=== PATIENT | male | born 1970 | race Caucasian/White ===

== ENCOUNTER → 2017-02-16 | Outpatient (CLI) | payer OTHER ==
[~2017-02-16] MED LIST: OMNIPAQUE 350 MG/ML, 75ML BOTTLE ONE
== END | disposition home or self-care (01) ==
LOC: CFH 12:16
PROVIDERS: ATTEND Family Medicine
DX: R07.89 Other chest pain (principal)
CPT/HCPCS: 71260; Q9967

== ENCOUNTER → 2017-02-27 | Outpatient (CLI) | payer OTHER | END | disposition home or self-care (01) | LOC: CFH 13:27 | PROVIDERS: ATTEND Internal Medicine Cardiovascular Disease | DX: Z13.6 Encounter for screening for cardiovascular disorders (principal); R07.89 Other chest pain | CPT/HCPCS: 75571 ==

== ENCOUNTER 2017-03-04 14:18 | Emergency (ER) | payer OTHER ==
[~2017-03-04] VITALS: Ht 182.9 cm; Wt 83.6 kg
[2017-03-04] MEDS ORDERED: LORA-445 PO (15:00)
[2017-03-04] MEDS ORDERED: RANI150T8 PO (15:00)
[2017-03-04] MEDS ORDERED: PANT40TA3 PO (15:00)
[2017-03-04] MEDS ORDERED: OLAN2.5T3 PO (15:00)
[2017-03-04] MEDS ORDERED: SODIUM CHLORIDE FLUSH 10ML SYR IVF ONE (15:30)
[2017-03-04 15:31] LABS: ASPARTATE AMINO TRANSFERASE 26 U/L (15-37); BLOOD UREA NITROGEN 20 mg/dL (7-18)
[2017-03-04 15:38] LABS: IS PT STATUS REG ER OR PRE ER? YES
[2017-03-04 16:15] VITALS: BP 119/71
[2017-03-04 17:37] LABS: IS PT STATUS REG ER OR PRE ER? YES
== END 2017-03-04 18:05 | disposition home or self-care (01) ==
LOC: ED 17:50
DX: R07.2 Precordial pain (principal); K21.9 Gastro-esophageal reflux disease without esophagitis; Z87.891 Personal history of nicotine dependence
CPT/HCPCS: 36415; 71010; 76700; 80053; 83690; 83880; 84484; 85025; 93005; 99285

== ENCOUNTER 2017-03-07 16:51 | Emergency (ER) | payer OTHER ==
[~2017-03-07] VITALS: Ht 182.9 cm; Wt 85.8 kg
[~2017-03-07 16:51] MED LIST changes: +LORA-445 PO; +OLAN2.5T3 PO; -OMNIPAQUE 350 MG/ML, 75ML BOTTLE ONE; +PANT40TA3 PO; +RANI150T8 PO
[2017-03-07 18:53] LABS: BLOOD UREA NITROGEN 12 mg/dL (7-18)
[2017-03-07 18:59] LABS: IS PT STATUS REG ER OR PRE ER? YES
[2017-03-07 19:24] VITALS: BP 144/89
== END 2017-03-07 19:27 | disposition home or self-care (01) ==
LOC: ED 17:41
DX: R07.2 Precordial pain (principal); K21.9 Gastro-esophageal reflux disease without esophagitis; Z87.891 Personal history of nicotine dependence
CPT/HCPCS: 36415; 71010; 80048; 82040; 84484; 85025; 93005; 99285

== ENCOUNTER 2017-03-13 09:34 | Day surgery (SDC) | payer OTHER ==
[2017-03-12 11:55] VITALS: BP 115/68
[2017-03-12 13:00] LABS: BLOOD UREA NITROGEN 12 mg/dL (7-18)
[~2017-03-13] VITALS: Ht 182.9 cm; Wt 84.1 kg
[~2017-03-13 09:34] MED LIST changes: +TEST200V3 IM
[2017-03-13] MEDS ORDERED: SODIUM CHLORIDE 0.9% 1,000 ML IV SCH ×2 (10:27→14:00)
[2017-03-13] MEDS ORDERED: ONDANSETRON 2MG/ML, 2ML IVPush PRN (10:30)
[2017-03-13] MEDS ORDERED: BISACODYL 5 MG EC TABLET PO PRN (10:30)
[2017-03-13] MEDS ORDERED: ACETAMINOPHEN 325 MG TABLET PO PRN (10:30)
[2017-03-13] MEDS ORDERED: ASPIRIN 325 MG TABLET EC PO ONE (10:30)
[2017-03-13] MEDS ORDERED: BISACODYL 10 MG SUPP PR PRN (10:30)
[2017-03-13] MEDS ORDERED: ZOLPIDEM 5MG TABLET PO PRN (10:30)
[2017-03-13] MEDS ORDERED: FENTANYL PF 100 MCG/2ML ONE (12:23)
[2017-03-13] MEDS ORDERED: LIDOCAINE 2%, 20ML ONE (12:24)
[2017-03-13] MEDS ORDERED: MIDAZOLAM 1 MG/ML, 5ML ONE (12:24)
[2017-03-13] MEDS ORDERED: ACETAMINOPHEN 325 MG TABLET ONE (12:26)
== END 2017-03-13 16:30 ==
LOC: CACL 09:34
PROVIDERS: ATTEND Internal Medicine Cardiovascular Disease
DX: R07.9 Chest pain, unspecified (principal); Z88.3 Allergy status to other anti-infective agents; Z88.0 Allergy status to penicillin; Z88.8 Allergy status to other drugs, medicaments and biological substances; Z87.891 Personal history of nicotine dependence
CPT/HCPCS: 36415; 71020; 80048; 85025; 85610; 85730; 93005; 93458; 99156; C1894; J2250; J3010; J3490; J7030; Q9967

== ENCOUNTER 2017-03-14 15:33 | Emergency (ER) | payer OTHER ==
[~2017-03-14] VITALS: Ht 182.9 cm; Wt 84.0 kg
[2017-03-14] MEDS ORDERED: MORPHINE SULFATE 4 MG/ML, 1ML ONE (16:28)
[2017-03-14] MEDS ORDERED: KETOROLAC 30 MG/1 ML ONE (16:29)
[2017-03-14] MEDS ORDERED: MAALOX/HYOSCYAMINE/LIDOCAINE 45 ML BTL ONE (16:29)
[2017-03-14] MEDS ORDERED: SODIUM CHLORIDE 0.9% 1,000ML IVBOLUS ONE (16:30)
[2017-03-14] MEDS ORDERED: SODIUM CHLORIDE FLUSH 10ML SYR IVF ONE (16:30)
[2017-03-14] MEDS ORDERED: MORPHINE SULFATE 4 MG/ML, 1ML IVPush PRN (16:30)
[2017-03-14] MEDS ORDERED: KETOROLAC 30 MG/1 ML IVPush ONE (16:30)
[2017-03-14] MEDS ORDERED: MAALOX/HYOSCYAMINE/LIDOCAINE 45 ML BTL PO ONE (16:30)
[2017-03-14 17:01] LABS: BLOOD UREA NITROGEN 8 mg/dL (7-18)
[2017-03-14 17:29] LABS: IS PT STATUS REG ER OR PRE ER? YES
[2017-03-14 18:17] VITALS: BP 118/63
== END 2017-03-14 18:18 | disposition home or self-care (01) ==
LOC: ED 17:41
DX: R07.9 Chest pain, unspecified (principal); K21.9 Gastro-esophageal reflux disease without esophagitis; Z87.891 Personal history of nicotine dependence
CPT/HCPCS: 36415; 71010; 80048; 82040; 83880; 84484; 93005; 96361; 96374; 96375; 99285; J1885; J7030

== ENCOUNTER 2017-03-25 15:00 | Emergency (ER) | payer OTHER ==
[~2017-03-25] VITALS: Ht 182.9 cm; Wt 86.4 kg
[2017-03-25] MEDS ORDERED: KETOROLAC 30 MG/1 ML IVPush ONE (15:30)
[2017-03-25] MEDS ORDERED: ONDANSETRON 2MG/ML, 2ML IVPush ONE (15:30)
[2017-03-25] MEDS ORDERED: ASPIRIN 81 MG TABLET CHEW PO ONE (15:30)
[2017-03-25] MEDS ORDERED: MORPHINE SULFATE 4 MG/ML, 1ML IVPush PRN (15:30)
[2017-03-25] MEDS ORDERED: SODIUM CHLORIDE 0.9% 1,000ML IVBOLUS ONE (15:30)
[2017-03-25] MEDS ORDERED: SODIUM CHLORIDE FLUSH 10ML SYR IVF ONE (15:30)
[2017-03-25 15:46] LABS: HEMATOCRIT 50.9 % (39.2-51.8); HEMOGLOBIN 17.5 g/dL (13.7-18.0)
[2017-03-25 15:48] LABS: BLOOD UREA NITROGEN 16 mg/dL (7-18)
[2017-03-25 15:53] LABS: IS PT STATUS REG ER OR PRE ER? YES
[2017-03-25] MEDS ORDERED: MORPHINE SULFATE 4 MG/ML, 1ML ONE (16:09)
[2017-03-25] MEDS ORDERED: KETOROLAC 30 MG/1 ML ONE (16:09)
[2017-03-25] MEDS ORDERED: ASPIRIN 81 MG TABLET CHEW ONE (16:10)
[2017-03-25] MEDS ORDERED: ONDANSETRON 2MG/ML, 2ML ONE (16:10)
[2017-03-25] MEDS ORDERED: OMNIPAQUE 350 MG/ML, 100ML BOTTLE ONE (18:30)
[2017-03-25 19:52] VITALS: BP 119/64
== END 2017-03-25 19:55 | disposition home or self-care (01) ==
LOC: ED 17:43
DX: R07.89 Other chest pain (principal); K21.9 Gastro-esophageal reflux disease without esophagitis
CPT/HCPCS: 36415; 71020; 71275; 74175; 80048; 82040; 83880; 84484; 85025; 93005; 96361; 96374; 96375; 99285; J1885; J2405; J7030; Q9967

== ENCOUNTER → 2017-03-25 | Outpatient (CLI) | payer OTHER | END | disposition home or self-care (01) | LOC: CFH 07:47 | PROVIDERS: ATTEND Family Medicine | DX: R10.9 Unspecified abdominal pain (principal); J44.9 Chronic obstructive pulmonary disease, unspecified | CPT/HCPCS: 76700 ==

== ENCOUNTER → 2017-03-31 | Outpatient (CLI) | payer OTHER | END | disposition home or self-care (01) | LOC: PETCFH 07:59 | PROVIDERS: ATTEND Family Medicine | DX: R10.13 Epigastric pain (principal); J44.9 Chronic obstructive pulmonary disease, unspecified | CPT/HCPCS: 78227; A9537 ==

== ENCOUNTER 2017-04-28 16:50 | Emergency (ER) | payer OTHER ==
[~2017-04-28] VITALS: Ht 182.9 cm; Wt 89.9 kg
[2017-04-28] MEDS ORDERED: DIAZEPAM 5 MG TABLET PO ONE (17:30)
[2017-04-28] MEDS ORDERED: DIAZEPAM 5 MG TABLET ONE (17:34)
[2017-04-28 18:00] LABS: HEMATOCRIT 46.2 % (39.2-51.8); HEMOGLOBIN 16.2 g/dL (13.7-18.0); WHITE BLOOD COUNT 6.5 x10^3/uL (3.4-10)
[2017-04-28 18:13] LABS: BLOOD UREA NITROGEN 19 mg/dL (7-18)
[2017-04-28 18:18] LABS: IS PT STATUS REG ER OR PRE ER? YES
[2017-04-28] MEDS ORDERED: ACETAMINOPHEN 500 MG TABLET ONE (19:18)
[2017-04-28 19:21] VITALS: BP 123/72
[2017-04-28] MEDS ORDERED: ACETAMINOPHEN 325 MG TABLET PO ONE (19:30)
== END 2017-04-28 20:15 | disposition home or self-care (01) ==
LOC: ED 19:10
DX: R07.89 Other chest pain (principal); K21.9 Gastro-esophageal reflux disease without esophagitis; Z87.891 Personal history of nicotine dependence
CPT/HCPCS: 36415; 71020; 80048; 82040; 84484; 85025; 93005; 99285

== ENCOUNTER 2017-05-28 14:22 | Emergency (ER) | payer OTHER ==
[~2017-05-28] VITALS: Ht 182.9 cm; Wt 97.0 kg
[2017-05-28] MEDS ORDERED: SODIUM CHLORIDE FLUSH 10ML SYR IVF ONE (14:30)
[2017-05-28] MEDS ORDERED: ONDANSETRON 2MG/ML, 2ML IVPush ONE (14:30)
[2017-05-28] MEDS ORDERED: MORPHINE SULFATE 4 MG/ML, 1ML IVPush PRN (14:30)
[2017-05-28] MEDS ORDERED: DEXAMETHASONE 4 MG/ML, 1ML IVPush ONE (14:30)
[2017-05-28] MEDS ORDERED: SODIUM CHLORIDE 0.9% 1,000ML IVBOLUS ONE (14:30)
[2017-05-28] MEDS ORDERED: DEXAMETHASONE 4 MG/ML, 5ML ONE (14:47)
[2017-05-28] MEDS ORDERED: ONDANSETRON 2MG/ML, 2ML ONE (14:47)
[2017-05-28] MEDS ORDERED: MORPHINE SULFATE 4 MG/ML, 1ML ONE (14:48)
[2017-05-28] MEDS ORDERED: HYDROmorphone 1 MG/ML, 1ML IV ONE (15:30)
[2017-05-28] MEDS ORDERED: HYDROmorphone 1 MG/ML, 1ML ONE (15:47)
[2017-05-28 16:36] VITALS: BP 132/72
== END 2017-05-28 16:39 | disposition home or self-care (01) ==
LOC: ED 16:33
DX: J95.89 Other postprocedural complications and disorders of respiratory system, not elsewhere classified (principal); J98.11 Atelectasis; Y83.6 Removal of other organ (partial) (total) as the cause of abnormal reaction of the patient, or of later complication, without mention of misadventure at the time of the procedure; K21.9 Gastro-esophageal reflux disease without esophagitis
CPT/HCPCS: 70360; 71020; 96361; 96374; 96375; 99284; J1100; J1170; J2405; J7030

== ENCOUNTER 2017-06-01 11:21 | Emergency (ER) | payer OTHER ==
[~2017-06-01] VITALS: Ht 185.4 cm; Wt 82.4 kg
[2017-06-01] MEDS ORDERED: LORA-446 PO (12:23)
[2017-06-01] MEDS ORDERED: OXYC-302 PO (12:23)
[2017-06-01 12:32] VITALS: BP 144/81
[2017-06-01 12:40] LABS: HEMATOCRIT 48.9 % (39.2-51.8); HEMOGLOBIN 17.1 g/dL (13.7-18.0); WHITE BLOOD COUNT 8.1 x10^3/uL (3.4-10)
[2017-06-01 12:52] LABS: BLOOD UREA NITROGEN 13 mg/dL (7-18)
[2017-06-01 12:57] LABS: IS PT STATUS REG ER OR PRE ER? YES
== END 2017-06-01 13:55 | disposition home or self-care (01) ==
LOC: ED 11:55
DX: R07.2 Precordial pain (principal); K21.9 Gastro-esophageal reflux disease without esophagitis; Z88.0 Allergy status to penicillin
CPT/HCPCS: 36415; 80048; 82040; 83880; 84484; 85025; 93005; 99285

== ENCOUNTER 2017-06-03 09:39 | Emergency (ER) | payer OTHER ==
[~2017-06-03] VITALS: Ht 182.9 cm; Wt 95.0 kg
[~2017-06-03 09:39] MED LIST changes: +LORA-446 PO; +OXYC-302 PO
[2017-06-03] MEDS ORDERED: KETOROLAC 30 MG/1 ML IVPush ONE (10:30)
[2017-06-03] MEDS ORDERED: SODIUM CHLORIDE 0.9% 1,000ML IVBOLUS ONE (10:30)
[2017-06-03] MEDS ORDERED: SODIUM CHLORIDE FLUSH 10ML SYR IVF ONE (10:30)
[2017-06-03] MEDS ORDERED: KETOROLAC 30 MG/1 ML ONE (10:34)
[2017-06-03 10:35] LABS: HEMATOCRIT 52.2 % (39.2-51.8); WHITE BLOOD COUNT 6.6 x10^3/uL (3.4-10)
[2017-06-03 10:48] LABS: BLOOD UREA NITROGEN 18 mg/dL (7-18)
[2017-06-03 10:53] LABS: ASPARTATE AMINO TRANSFERASE 17 U/L (15-37)
[2017-06-03 10:55] LABS: IS PT STATUS REG ER OR PRE ER? YES
[2017-06-03 12:28] VITALS: BP 122/86
== END 2017-06-03 12:31 | disposition home or self-care (01) ==
LOC: ED 11:34
DX: M54.6 Pain in thoracic spine (principal); R09.1 Pleurisy; K21.9 Gastro-esophageal reflux disease without esophagitis; Z87.891 Personal history of nicotine dependence; Z98.890 Other specified postprocedural states
CPT/HCPCS: 36415; 71010; 80053; 83880; 84484; 85025; 85379; 85610; 85730; 93005; 96361; 96374; 99285; J1885; J7030

== ENCOUNTER 2017-08-11 11:50 | Emergency (ER) | payer OTHER ==
[~2017-08-11] VITALS: Ht 182.9 cm; Wt 94.0 kg
[2017-08-11 13:15] LABS: BASOPHILS # (AUTO) 0.03 x10^3/uL (0-0.1); BASOPHILS % (AUTO) 1 % (0-1); EOSINOPHILS # (AUTO) 0.09 x10^3/uL (0-0.4); EOSINOPHILS % (AUTO) 2 % (1-7); LYMPHOCYTES # (AUTO) 1.33 x10^3/uL (1-3.4); LYMPHOCYTES % (AUTO) 27 % (22-44); MD NO; MEAN CORPUSCULAR HEMOGLOBIN 32.5 pg (27.5-34.5); MEAN CORPUSCULAR VOLUME 95.6 fL (81-97); MEAN PLATELET VOLUME 7.3 fL (7.4-10.4); MONOCYTES # (AUTO) 0.34 x10^3/uL (0.2-0.8); MONOCYTES % (AUTO) 7 % (2-9); NEUTROPHILS # (AUTO) 3.21 x10^3/uL (1.8-6.8); NEUTROPHILS % (AUTO) 64 % (42-75); PLATELET COUNT 189 x10^3/uL (130-400); RED BLOOD COUNT 5.88 x10^6/uL (4.38-5.82); RED CELL DISTRIBUTION WIDTH 13.4 % (9.4-14.8)
[2017-08-11 13:26] LABS: ALBUMIN 4.2 g/dL (3.4-5.0); ANION GAP 6 mmol/L (5-15); CALCIUM 8.5 mg/dL (8.5-10.1); CHLORIDE 105 mmol/L (98-107); CREATININE 1.13 mg/dL (0.7-1.3)
[2017-08-11 13:30] LABS: MICROSCOPIC AUTO
[2017-08-11 13:31] LABS: CULTURE INDICATED? NO
[2017-08-11 14:49] VITALS: BP 143/101
== END 2017-08-11 15:19 | disposition home or self-care (01) ==
LOC: ED 15:12
DX: N41.0 Acute prostatitis (principal); K21.9 Gastro-esophageal reflux disease without esophagitis
CPT/HCPCS: 36415; 80048; 81001; 82040; 85025; 99284

== ENCOUNTER → 2017-09-14 | Outpatient (CLI) | payer OTHER | END | disposition home or self-care (01) | LOC: RAD 13:19 | PROVIDERS: ATTEND Internal Medicine Gastroenterology | DX: F45.8 Other somatoform disorders (principal); K21.9 Gastro-esophageal reflux disease without esophagitis | CPT/HCPCS: 74230 ==

== ENCOUNTER 2018-05-02 08:51 | Emergency (ER) | payer OTHER ==
[~2018-05-02 08:51] MED LIST changes: +RANI150T23 PO; -RANI150T8 PO
== END 2018-05-02 08:56 | disposition left against medical advice (07) ==
LOC: ED 08:54
DX: R42 Dizziness and giddiness (principal); Z53.21 Procedure and treatment not carried out due to patient leaving prior to being seen by health care provider
CPT/HCPCS: 99284

== ENCOUNTER 2018-05-04 08:29 | Emergency (ER) | payer OTHER ==
[~2018-05-04] VITALS: Ht 182.9 cm; Wt 86.0 kg
[2018-05-04 08:34] VITALS: BP 119/71
[2018-05-04 09:40] LABS: BASOPHILS # (AUTO) 0.03 x10^3/uL (0-0.1); BASOPHILS % (AUTO) 1 % (0-1); EOSINOPHILS # (AUTO) 0.15 x10^3/uL (0-0.4); EOSINOPHILS % (AUTO) 4 % (1-7); LYMPHOCYTES # (AUTO) 0.98 x10^3/uL (1-3.4); LYMPHOCYTES % (AUTO) 23 % (22-44); MD NO; MEAN CORPUSCULAR HEMOGLOBIN 33.6 pg (27.5-34.5); MEAN CORPUSCULAR HGB CONC 34.9 g/dL (33.2-36.2); MEAN CORPUSCULAR VOLUME 96.3 fL (81-97); MEAN PLATELET VOLUME 7.5 fL (7.4-10.4); MONOCYTES # (AUTO) 0.32 x10^3/uL (0.2-0.8); MONOCYTES % (AUTO) 8 % (2-9); NEUTROPHILS # (AUTO) 2.77 x10^3/uL (1.8-6.8); NEUTROPHILS % (AUTO) 65 % (42-75); PLATELET COUNT 221 x10^3/uL (130-400); RED BLOOD COUNT 5.31 x10^6/uL (4.38-5.82); RED CELL DISTRIBUTION WIDTH 13.4 % (9.4-14.8)
[2018-05-04 09:43] LABS: MICROSCOPIC NOT IND
[2018-05-04 09:46] LABS: CULTURE INDICATED? NO
[2018-05-04 09:52] LABS: ALBUMIN 3.7 g/dL (3.4-5.0); ANION GAP 7 mmol/L (5-15); CALCIUM 8.4 mg/dL (8.5-10.1); CHLORIDE 109 mmol/L (98-107)
[2018-05-04 10:03] LABS: ALANINE AMINOTRANSFERASE 35 U/L (12-78); ALKALINE PHOSPHATASE 61 U/L (45-117); BILIRUBIN,TOTAL 0.5 mg/dL (0.2-1.0); THYROID STIMULATING HORMONE 0.953 mIU/L (0.358-3.740)
== END 2018-05-04 11:15 | disposition home or self-care (01) ==
LOC: ED 10:16
DX: R53.1 Weakness (principal); R51 Headache; R41.0 Disorientation, unspecified; N23 Unspecified renal colic; K21.9 Gastro-esophageal reflux disease without esophagitis
CPT/HCPCS: 36415; 80053; 81003; 83690; 84443; 85025; 99284

== ENCOUNTER 2018-05-05 11:54 | Emergency (ER) | payer OTHER ==
[~2018-05-05] VITALS: Ht 182.9 cm; Wt 83.7 kg
[2018-05-05 12:08] VITALS: BP 122/74
== END 2018-05-05 14:02 | disposition home or self-care (01) ==
LOC: ED 13:53
DX: R53.1 Weakness (principal); R53.83 Other fatigue; K21.9 Gastro-esophageal reflux disease without esophagitis; F32.9 Major depressive disorder, single episode, unspecified
CPT/HCPCS: 36415; 83735; 99283

== ENCOUNTER 2020-07-25 09:02 | Emergency (ER) | payer OTHER ==
[~2020-07-25 09:02] MED LIST changes: +QUET25TA5 PO; +RANI-467 PO; -RANI150T23 PO; +SERT50TA PO
[2020-07-25] MEDS ORDERED: SODIUM CHLORIDE 0.9% 1,000ML IVBOLUS ONE (09:30)
[2020-07-25 10:09] VITALS: BP_DIAS 63
[2020-07-25 10:10] LABS: ALBUMIN 3.8 g/dL (3.4-5.0); ANION GAP 3 mmol/L (5-15); CALCIUM 8.5 mg/dL (8.5-10.1); CHLORIDE 112 mmol/L (98-107); CREATININE 0.96 mg/dL (0.7-1.3)
--- NOTE | 2020-07-25 10:10 | NUR ---
ASSUMED CARE OF PT AT THIS TIME, REPORT RECEIVED. FIRST CONTACT WITH PT. 50 Y/0 M PRESENTS STATING "HAD PROSTATE SURGERY BACK IN MARCH, SINCE INCREASING PAIN, BODY ACHES, FATIGUE, CONSTANT KIDNEY AND SURGICAL SITE PAIN AND ONE NIGHT I WOKE UP TO BLOOD IN MY UNDERWEAR A WEEK OR 2 AGO, TALKED TO UROLOGY AND THEY DIDN'T KNOW WHAT TO DO, SO I'M HERE." RATES PAIN 03/19 "BODY ACHES AND PROSTATE AREA." HAS EVALUATED PT, LABS HAVE BEEN DRAWN. TO PLACE IV FOR CT. PT UPDATED ON POC. UA COLLECTED AND SENT TO LAB. CALL LIGHT IN REACH. FALL PRECAUTIONS IN PLACE. A&OX4. VSS. CONT PULSE OX, BP MONITORS IN PLACE. PT AWAITING CT.
[2020-07-25 10:12] LABS: BASOPHILS % (AUTO) 1 % (0-1); EOSINOPHILS % (AUTO) 1 % (1-7); LYMPHOCYTES % (AUTO) 22 % (22-44); MEAN CORPUSCULAR HEMOGLOBIN 32.7 pg (27.5-34.5); MEAN CORPUSCULAR HGB CONC 34.3 g/dL (33.2-36.2); MEAN PLATELET VOLUME 7.5 fL (7.4-10.4); MONOCYTES % (AUTO) 7 % (2-9); NEUTROPHILS % (AUTO) 69 % (42-75); PLATELET COUNT 235 x10^3/uL (130-400); RED BLOOD COUNT 4.44 x10^6/uL (4.38-5.82)
[2020-07-25 10:16] LABS: MD NO
--- NOTE | 2020-07-25 10:23 | NUR ---
PT TO CT
[2020-07-25] MEDS ORDERED: OMNIPAQUE 350 MG/ML, 100ML BOTTLE ONE (10:36)
--- NOTE | 2020-07-25 10:42 | NUR ---
PT BACK FROM CT. IVF INFUSING PER ORDER. VSS. DENIES NEED TO USE RESTROOM. REFUSES NEED FOR PAIN MEDICATION AT THIS TIME. RESTING COMFORTABLY. CALL LIGHT IN REACH. FALL PRECUATIONS IN PLACE.
[2020-07-25 10:58] LABS: MICROSCOPIC NOT IND
--- NOTE | 2020-07-25 11:00 | NUR ---
BEDSIDE REPORT AND TRANSFER OF CARE TO DORETHA BILLINGS AT THIS TIME.
[2020-07-25 11:59] VITALS: BP_SYST 109
== END 2020-07-25 12:01 | disposition home or self-care (01) ==
LOC: ED 11:00
DX: C80.1 Malignant (primary) neoplasm, unspecified (principal); G89.29 Other chronic pain; R10.84 Generalized abdominal pain; R31.9 Hematuria, unspecified
CPT/HCPCS: 36415; 74177; 80048; 81003; 82040; 85025; 96360; 99285; J7030; Q9967

== ENCOUNTER 2021-02-26 03:05 | Emergency (ER) | payer OTHER ==
[~2021-02-26] VITALS: Ht 182.9 cm; Wt 75.0 kg
[~2021-02-26 03:05] MED LIST changes: -OXYC-302 PO; +OXYC1TAB14 PO
[2021-02-26 03:08] VITALS: BP 120/63
--- NOTE | 2021-02-26 03:30 | NUR ---
Pt super aggressive towards staff. PA attempting to evaluate pt, asking approp questions regarding pt's complaint, pt continually refusing to answer questions stating "why the fuck do you need to know that" when pt was asked if he and his partner have been partners for a while. Door was left open as pt was uncooperative and aggressive towards staff during evaluation.
--- NOTE | 2021-02-26 03:40 | NUR ---
RN in room to try to calm and de-escalate situation. Pt cont to yell at RN stating "you guys are just keeping me prisoner here". Pt girlfriend closed the door behind RN, RN opened door again as pt was increasing in aggitation. Pt informed that he can leave at any time. Pt left room, yelling at staff.
== END 2021-02-26 03:43 | disposition left against medical advice (07) ==
LOC: ED 03:20
DX: Z20.6 Contact with and (suspected) exposure to human immunodeficiency virus [HIV] (principal); K21.9 Gastro-esophageal reflux disease without esophagitis; Z85.46 Personal history of malignant neoplasm of prostate; Z87.891 Personal history of nicotine dependence
CPT/HCPCS: 99281